=== PATIENT | female | born 1950 | race Caucasian/White ===

== ENCOUNTER 2022-04-08 06:24 | Emergency (ER) | payer MEDICARE, OTHER ==
[~2022-04-08 06:24] MED LIST: ALLERGY SYRING1 EAC1 SC; PROLIA60 MG/1 ML IJ; TUMS200 MG PO; VITAMIN D-32000 UNIT PO; VITAMIN D31000 UNI1 PO; XYZAL5 MG PO; ZOCOR10 MG PO
[2022-04-08] MEDS ORDERED: NORCO 5-325 TA1 EACH PO (09:44)
== END 2022-04-08 10:26 | disposition home or self-care (01) ==
LOC: FER 06:24
DX: S42.251A Displaced fracture of greater tuberosity of right humerus, initial encounter for closed fracture (principal); Z88.0 Allergy status to penicillin; Z88.2 Allergy status to sulfonamides; Z88.5 Allergy status to narcotic agent; W01.0XXA Fall on same level from slipping, tripping and stumbling without subsequent striking against object, initial encounter; Y92.410 Unspecified street and highway as the place of occurrence of the external cause
CPT/HCPCS: 73020; 73030; 73060; 96374; 96375; 96376; 99152; J1170; J3360; J7040